=== PATIENT | female | born 1970 | race Asian ===

== ENCOUNTER 2020-04-10 12:40 | Emergency (ER) | payer SELFPAY ==
[~2020-04-10] VITALS: Ht 160 cm; Wt 61.7 kg
[2020-04-10 12:54] VITALS: BP 121/79; Ht 160 cm; Wt 61.7 kg
[2020-04-10 14:00] LABS: CALCIUM 8.8 mg/dL (8.5-10.1); CARBON DIOXIDE 25.3 mmol/L (21-32); CHLORIDE SERUM 95 mmol/L (98-107); CREATININE SERUM 0.7 mg/dL (0.6-1.0); GFR1 > 60 mL/min; GLUCOSE SERUM 128 mg/dL (74-106); POTASSIUM SERUM 3.6 mmol/L (3.5-5.1); SODIUM SERUM 130 mmol/L (136-145)
[2020-04-10 14:07] LABS: ALKALINE PHOSPHATASE 145 U/L (46-116); BILIRUBIN TOTAL 0.6 mg/dL (0.20-1.00); TOTAL PROTEIN, SERUM 8.2 g/dL (6.4-8.2)
[2020-04-10 14:12] LABS: BASOPHIL % 0.1 % (0.2-1.3); RED CELL DISTRIBUTION WIDTH 12.8 % (12.3-17.7)
[2020-04-10 14:21] LABS: ALBUMIN 3.2 g/dL (3.4-5.0)
[2020-04-10 14:28] LABS: PLATELET COUNT 462 x10^3mcL (179-408)
[2020-04-10 14:53] LABS: ALT/SGPT 41 U/L (14-59); AST/SGOT 13 U/L (15-37)
== END 2020-04-10 16:06 | disposition home or self-care (01) ==
LOC: ED 12:40
DX: R07.89 Other chest pain (principal); M79.7 Fibromyalgia; M32.9 Systemic lupus erythematosus, unspecified